=== PATIENT | female | born 1960 | race Caucasian/White ===

== ENCOUNTER 2018-07-08 09:43 | Inpatient (IN) | payer OTHER ==
[~2018-07-08 09:43] MED LIST: ROPIVACAINE 0.2% 80 MG, EPINEPHrine 0.2 MG, KETOROLAC TROMETHAMINE 30 MG, morphINE 10 M... IU ONE; TRANEXAMIC ACID 2,000 MG in NS 100 ML IV ONE
[2018-07-08] MEDS ORDERED: ceFAZolin 2 GM/DEXTROSE 100 ML IV ONE (11:16)
[2018-07-08] MEDS ORDERED: ACETAMINOPHEN 500 MG TAB PO ONE (11:16)
[2018-07-08] MEDS ORDERED: LR 1,000 ML IV SCH (11:16)
[2018-07-08] MEDS ORDERED: LIDOCAINE 1% 2 ML INJ ID PRN (11:18)
[2018-07-08] MEDS ORDERED: ceFAZolin 1 GM/5 ML SYR ONE (12:04)
--- NOTE | 2018-07-08 12:35 | PDHPUP ---
History & Physical Update H&P update statement: This history and physical update is based on an assessment of the patient which was completed after admission or registration (within 24 hours), but prior to the surgery/procedure. H&P update: H&P reviewed & patient examined, no change in patient's condition since H&P completed, changes noted
--- NOTE | 2018-07-08 12:55 | PDANEPAE ---
ANE History of Present Illness Left TKA ANE Past Medical History - Cardiovascular History Hx Hypertension: Yes Hx Arrhythmias: No Hx Chest Pain: No Hx Coronary Artery / Peripheral Vascular Disease: No Hx CHF / Valvular Disease: No Hx Palpitations: No - Pulmonary History Hx COPD: No Hx Asthma/Reactive Airway Disease: No Hx Recent Upper Respiratory Infection: Yes Hx Oxygen in Use at Home: No Hx Sleep Apnea: No Sleep Apnea Screening Result - Last Documented: Negative Pulmonary History Comment: CURRENTLY ON ANTIBIOTIC FOR POSSIBLE URI BEGAN . PNEUMONIA 09/2017. seasonal allergies. - Neurologic History Hx Cerebrovascular Accident: No Hx Seizures: No Hx Dementia: No - Endocrine History Hx Diabetes: No - Renal History Hx Renal Disorders: Yes Renal History Comment: Stones 02/07. - Liver History Hx Hepatic Disorders: No Hepatic History Comment: Fatty liver in past. - Neurological & Psychiatric Hx Hx Neurological and Psychiatric Disorders: No - Cancer History Hx Cancer: No - Congenital Disorder History Hx Congenital Disorders: No - GI History Hx Gastrointestinal Disorders: No - Other Health History Other Health History: OSTEOARTHRITIS - Chronic Pain History Chronic Pain: Yes (LT KNEE) - Surgical History Prior Surgeries: LT TOTAL KNEE 06/2015. AJAY. HYSTERECTOMY. . ANE Review of Systems Review of Systems: - Exercise capacity METS (RN): 4 METS ANE Patient History - Allergies Allergies/Adverse Reactions: Sulfa (Sulfonamide Antibiotics) Allergy (Intermediate, Verified 06/03/15 11:20) Rash fentanyl Allergy (Verified 06/24/18 10:00) Other-Enter Comments oxycodone Allergy (Verified 05/27/15 14:21) PT HAD SOME TONGUE SWELLING WITH OXYCODONE IR IV iodine Allergy (Intermediate, Uncoded 06/03/15 11:20) Hives - Home Medications Home Medications: Fexofenadine HCl [Nury Allergy] 180 mg PO DAILY PRN 06/24/18 [Last Taken 11/13] Fluticasone Nasal [Flonase Nasal [place] (RX)] 1 sprays NASAL DAILY PRN 06/24/18 [ Last Taken 07/07/18] Ibuprofen [Motrin (*)] 200 mg PO DAILY PRN 06/24/18 [Last Taken 07/01/18] Warfarin Sodium [Coumadin 5MG (*)] 5 mg PO DAILY16 06/24/18 [Last Taken 07/08/18 ] - NPO status NPO Since - Liquids (Date): 07/08/18 NPO Since - Liquids (Time): 09:30 NPO Since - Solids (Date): 07/07/18 NPO Since - Solids (Time): 21:30 - Anes Hx Anes Hx: no prior problems (Had GA for TKA and was very happy.) - Smoking Hx Smoking Status: Never smoked - Family Anes Hx Family Hx Anesthesia Complications: none ANE Labs/Vital Signs - Vital Signs Blood Pressure: 149/103 Heart Rate: 73 Respiratory Rate: 14 O2 Sat (%): 93 Height: 163.83 cm Weight: 107.501 kg ANE Physical Exam - Airway Neck exam: FROM Mallampati Score: Class 2 Mouth exam: normal dental/mouth exam - Pulmonary Pulmonary: no respiratory distress - Cardiovascular Cardiovascular: regular rate and rhythym - ASA Status ASA Status: II ANE Anesthesia Plan Anesthesia Plan: general endotracheal anesthesia (Spinal with Adductor block discussed. Pt requests GA and no block. )
[2018-07-08] MEDS ORDERED: MIDAZOLAM 2 MG/2 ML VIAL IVP ONE (13:00)
[2018-07-08] MEDS ORDERED: MIDAZOLAM 2 MG/2 ML VIAL ONE (13:01)
[2018-07-08] MEDS ORDERED: fentaNYL 100 MCG/2 ML INJ ONE ×3 (13:07→15:38)
[2018-07-08] MEDS ORDERED: LIDOCAINE 2% 5 ML SDV ONE (13:08)
[2018-07-08] MEDS ORDERED: PROPOFOL 200 MG/20 ML VIAL ONE (13:08)
[2018-07-08] MEDS ORDERED: ROCURONIUM 50 MG/5 ML VIAL ONE (13:08)
[2018-07-08] MEDS ORDERED: GLYCOPYRROLATE 0.2 MG/1 ML VIAL ONE (13:09)
[2018-07-08] MEDS ORDERED: ONDANSETRON 4 MG/2 ML VIAL ONE (13:26)
[2018-07-08] MEDS ORDERED: DEXAMETHASONE 4 MG/ML VIAL ONE (13:26)
[2018-07-08] MEDS ORDERED: LABETALOL HCL 5 MG/ML 20 ML MDV ONE (13:52)
[2018-07-08] MEDS ORDERED: NALOXONE HCL 0.4 MG/ML INJ IVP PRN ×2 (15:31→16:25)
[2018-07-08] MEDS ORDERED: ONDANSETRON 4 MG/2 ML VIAL IVP PRN (15:31)
[2018-07-08] MEDS ORDERED: PROMETHAZINE HCL 25 MG/ML INJ IVP PRN ×2 (15:31→18:25)
--- NOTE | 2018-07-08 15:55 | POSTOPPROG ---
Post Op Note Date of Operation: 07/08/18 Surgeon: Marina Varela [employer]: ness sutton Anesthesia: GET(General Endotracheal) Pre-op Diagnosis: left knee osteoarthritis Post-op Diagnosis: left knee osteoarthritis Procedure: left total knee arthroplasty Inf/Abcess present in the surg proc area at time of surgery?: No Depth: Deep Incisional (Fascial) EBL: 100-500 Drains: Fabien Delgadillo
--- NOTE | 2018-07-08 15:59 | POSTANESTH ---
Post Anesthetic Evaluation Cardiovascular Status: Similar to Pre-Op Cond Respiratory Status: Similar to Pre-op Cond. Level of Consciousness/Mental Status: Alert and Oriented Pain Control: Adequate, Prn Tx Ordered Nausea/Vomiting Control: Adequate, Prn Tx Ordered Complications Possibly Related to Anesthesia: None Noted
[2018-07-08] MEDS ORDERED: HYDROmorphONE/DILAUDID 1 MG/ML INJ IVP PRN (16:01)
[2018-07-08] MEDS ORDERED: ACETAMINOPHEN 325 MG TAB PO PRN (16:01)
[2018-07-08] MEDS ORDERED: ONDANSETRON DISINTEGRATING 4 MG TAB PO PRN (16:01)
[2018-07-08] MEDS ORDERED: KETOROLAC 15 MG/1 ML SDV IVP ONE (16:01)
[2018-07-08] MEDS ORDERED: HYDROmorphONE/DILAUDID 2 MG/ML INJ ONE ×2 (16:25→16:29)
[2018-07-08] MEDS: HYDROmorphONE/DILAUDID 1 MG/ML INJ IVP PRN ×4 (16:30→17:22)
[2018-07-08] MEDS ORDERED: KETOROLAC 15 MG/1 ML SDV ONE (17:19)
[2018-07-08] MEDS ORDERED: WARFARIN SODIUM 7.5 MG TAB PO ONE (18:00)
[2018-07-08] MEDS ORDERED: WARFARIN SODIUM 5 MG TAB ONE (18:06)
[2018-07-08] MEDS ORDERED: SCOPOLAMINE HYDROBROMIDE 1 MG/3 DAYS PATCH TD SCH (18:30)
[2018-07-08] MEDS: HYDROCODONE/APAP 5/325 TAB PO PRN (20:11)
[2018-07-08] MEDS: ceFAZolin 2 GM/DEXTROSE 100 ML IV SCH (20:11)
[2018-07-09] MEDS: HYDROCODONE/APAP 5/325 TAB PO PRN ×3 (00:08→08:50)
--- NOTE | 2018-07-09 03:08 | GOP ---
DATE OF OPERATION: 07/08/2018 SURGEON: Jeannette Varela MD NURSE PRACTITIONER HOME ASSESSMENTS: Mary Fajardo PA-C. ANESTHESIA: General. ANESTHESIOLOGIST: Isidro Hui MD. Use of a salesperson surgical appliances was required for surgical exposure during the procedure. PREOPERATIVE DIAGNOSIS: Severe osteoarthritis of the left knee. POSTOPERATIVE DIAGNOSIS: Severe osteoarthritis of the left knee. PROCEDURE PERFORMED: Left total knee arthroplasty. FINDINGS: INDICATIONS: This is a 58-year-old female with progressive and quite significant pain and disability secondary to the above diagnosis. She is failing nonoperative treatment and is being admitted for t he above surgical procedure. We have gone over risks, benefits, and limitations of the procedure pre operatively. DESCRIPTION OF PROCEDURE: After an adequate general anesthetic was obtained and IV antibiotics were administered, the patient's left lower extremity was prepped and draped in the usual sterile fashion. The limb was exsanguinate d with the Esmarch and the tourniquet elevated to 300 mmHg pressure. A longitudinal incision was luz ramsey over the knee and a medial arthrotomy was performed. Hemostasis was obtained using electrocauter y. The tourniquet was dysfunctional and therefore, the tourniquet was deflated and the limb re-exsan guinated, and tourniquet elevated to 325 mmHg pressure. At this point hemostasis was adequate. The patella was dislocated laterally. The joint was inspected. There was severe [id number] osteoa rthritis involving the patellofemoral and medial compartments. The medial and lateral meniscal remna nts were sharply excised, as were the osteophytes and the ACL. The intramedullary canal of the distal femur was entered. The intramedullary distal femoral cutting jig was applied. 9 mm of distal femur was resected in a 5 degree valgus alignment. The intramedullary tibial cutting jig was applied. Approximately 9 mm of proximal tibia was resected laterally and 7 mm medially perpendicular to the long axis of the tibia with 3 degrees of posterior slope, preserving the posterior cruciate ligament. The anterior/posterior jig was applied. We sized this to a 5. The jig was applied in approximately 3-4 degrees of external rotation commensurate wit h the transepicondylar axis. The anterior, posterior, and chamfer cuts were now preformed in the routine fashion. The patella was measured and approximately 9 mm resected. This was sized to a 35 component and the p atellar lug holes were drilled. A trial reduction was now performed using a size 5 narrow femur, 4 tibial tray with a 9 mm insert, an d 35 mm patellar button. This resulted in full extension and flexion. The knee was well balanced an d stable through a full range of motion. Patellar tracking was normal. Tibial tray rotation was mar ked. The femoral lug holes were punched and the proximal tibia was prepared with the keel punch in t he routine fashion. The first batch of cement was mixed. The proximal tibia was prepared with pulsatile lavage. The #4 tibial tray was now cemented in place and held firm while the cement hardened. Excess cement was rem trang. A bone plug was placed in the distal femoral hole. A second batch of cement was mixed. The distal f emoral and patellar surfaces were prepared with pulsatile lavage. The size 5 narrow femoral component was impacted into place and the knee extended with a 9 mm insert. The 35 mm patellar button was cemented into place and excess cement was removed. The patellar comp onent was held firm with a patellar clamp while the cement cured. Again, a trial reduction was now performed using a 9 mm insert. This resulted in a full range of motion with excellent varus and valgus stability through a full range of motion. Patellar tracking was normal. The overall alignment was confirmed to be accep table with the long alignment domenica. After further copious irrigation with pulsatile lavage, the final 9 mm insert was impacted into place and again, excellent range of motion and stability were confirmed. The tourniquet was deflated. Hemostasis was obtained using electrocautery. A large drain was left i n place intra-articularly. Medial arthrotomy was now closed using interrupted #2 Fiberwire sutures as well as #1 Vicryl sutures. Subcutaneous closure was performed using interrupted 2-0 Vicryl sutures, and the skin closed using stainless steel sudha. Cocktail comprised of Naropin, morphine, and Toradol was injected. Sterile dressing was applied, followed by an Choco wrap. There were no complications. The patient tolerated the procedure well and returned to the recovery r o in stable condition. IMPLANTS UTILIZED: 1. Mota and Nephew size 5, left cruciate-retaining Legion Narrow Oxinium femoral component. 2. Mota and Nephew size 4, Basia II left non-porous tibial baseplate. 3. Mota and Nephew size 4, 9 mm Legion CRXL PE, high-flexion articular insert. 4. Mota and Nephew 35 mm Basia II resurfacing patellar component. /[id number]/MODL
[2018-07-09] MEDS: ceFAZolin 2 GM/DEXTROSE 100 ML IV SCH (04:30)
[2018-07-09 05:47] LABS: INR 1.03 (0.83-1.16); PROTIME(PATIENT) 13.7 SEC (12.0-15.0)
[2018-07-09] MEDS ORDERED: WARFARIN SODIUM 7.5 MG TAB PO ONE (10:15)
--- NOTE | 2018-07-09 11:21 | SOAPPROG ---
SOAP Progress Note Assessment/Plan: Assessment: Left total knee arthroplasty, POD#[address] Varela. -Continue Warfarin with pharmacy to dose-checking INR daily as ordered. -Continue Polar Care ice machine -Continue elevation prn -Finish antibiotics today as ordered. -Weight bearing as tolerated LLE. -Continue to work with PT/OT. -Continue pain meds as ordered, avoiding Oxycodone due to her previous allergic reaction. -Pt. is planning to be able to go home tomorrow if she does well with PT/OT today and if she can get her pain under control with oral meds today. -Will check incision and change dressing tomorrow unless pt. needs a dressing change earlier. Subjective: Pt. had a difficult time getting up and putting weight on her left leg this AM but is encouraged by her ability to flex the knee. She was upset at the prospect of going home today which had been mentioned to her earlier this AM. She does not feel that her pain is adequately managed yet and has not yet had a chance to work with PT/OT to determine how she will do with stairs, which she will have to manage at home. I think this is reasonable as well. Pt. denies VELIZ, dizziness, further nausea, vomiting, no numbness or tingling of the toes or legs, no weakness of the lower legs. Objective: Pt. is sitting up in a chair, resting comfortably. in NAD. Distally her calves are soft, supple, NTTP, negative Adrián's test bilaterally. Sensation in tact and equal to BLE's with light touch, strength full with resisted dorsi and plantar flexion in BLE's. Skin is warm, dry and pink. 07/09/18 11:12 Objective: Vital Signs Temp Pulse Resp BP Pulse Ox 36.9 C 70 17 105/69 96 07/09/18 07:21 07/09/18 07:21 07/09/18 07:21 07/09/18 07:21 07/09/18 07:21 07/08/18 07/09/18 07/10/18 05:59 05:59 05:59 Intake Total 1730 Output Total 555 Balance 1175 PT 13.7 SEC (12.0-15.0) 07/09/18 04:52 INR 1.03 (0.83-1.16) 07/09/18 04:52 ICD10 Worksheet Patient Problems: Problems Problem Status Onset Localized osteoarthritis of right knee Acute
[2018-07-09] MEDS ORDERED: BISACODYL 10 MG SUPP PR PRN (11:26)
[2018-07-09] MEDS ORDERED: MAGNESIUM HYDROXIDE 30 ML UDCUP PO PRN (11:26)
[2018-07-09] MEDS ORDERED: POLYETHYLENE GLYCOL 3350 17 GM PKT PO PRN (11:26)
[2018-07-09] MEDS ORDERED: LACTULOSE 20 GM/30 ML UDCUP PO PRN (11:26)
[2018-07-09] MEDS ORDERED: HYDROmorphONE/DILAUDID 2 MG TAB PO PRN (11:28)
[2018-07-09] MEDS: KETOROLAC 30 MG/1 ML SDV IVP PRN ×2 (11:42→17:39)
[2018-07-09] MEDS: SENNOSIDES/DOCUSATE SODIUM TAB PO SCH ×2 (11:47→20:21)
[2018-07-09] MEDS: HYDROCODONE/APAP 10/325 TAB PO PRN ×2 (14:17→22:52)
--- NOTE | 2018-07-09 14:52 | ASMTCMCOM ---
CM Note CM Note Notes: Pt had planned TKA, resides with spouse. OT rec home, PT rec home/outpatient and also state there is a chance pt may need HHC. CM to follow. Date Signed: 07/09/2018 02:51 PM Electronically Signed By:LORENA Guzman
--- NOTE | 2018-07-09 16:20 | PDMN ---
Medical Necessity Medical necessity: Change to inpt as of 07/09/18 @ 1610. Pt meets inpt criteria per MD order and [facility] [place] S-700, Knee Arthroplasty, Total. 58 y/o POD#1 L TKA, upgraded to inpt for cont pain control, difficulty w/PT today, need for further PT eval. Pt w/add'l risk factors of hx pneumonia this past year and BMI of 40.
[2018-07-09] MEDS ORDERED: SENNOSIDES/DOCUSATE SODIUM TAB PO SCH (21:00)
[2018-07-10] MEDS: HYDROCODONE/APAP 10/325 TAB PO PRN ×2 (04:09→10:37)
[2018-07-10 05:25] LABS: INR 1.15 (0.83-1.16); PROTIME(PATIENT) 14.9 SEC (12.0-15.0)
[2018-07-10] MEDS: KETOROLAC 30 MG/1 ML SDV IVP PRN (05:40)
[2018-07-10] MEDS: SENNOSIDES/DOCUSATE SODIUM TAB PO SCH (09:12)
--- NOTE | 2018-07-10 11:10 | SOAPPROG ---
SOAP Progress Note Assessment/Plan: Assessment: Left total knee arthroplasty, POD#[address] Varela. -Continue Warfarin with pharmacy to dose-checking INR daily as ordered. -Continue Polar Care ice machine -Continue elevation prn -Weight bearing as tolerated LLE. -Continue to work with PT/OT. -Continue pain meds as ordered, avoiding Oxycodone due to her previous allergic reaction. -Pt. is planning to be able to go home today, she did well with PT and pain is much better controlled now than it was yesterday. -Will check incision and change dressing tomorrow unless pt. needs a dressing change earlier. Subjective: Pt. is feeling much better today from a pain perspective. She is not having any VELIZ, SOB, CP, Fever, calf pain, N/T of the extremities, weakness of the ankles/toes. ROM of the knee is painful, but she is getting 90 degrees of flexion. Objective: Pt. is resting in bed, comfortably, in NAD. Distally her calves are soft, supple, NTTP, negative Adrián's test bilaterally. Sensation in tact and equal to BLE's with light touch, strength full with resisted dorsi and plantar flexion in BLE's. Skin is warm, dry and pink. Incision is clean, with no surrounding redness, warmth, tenderness or swelling. Minimal bloody discharge. 07/09/18 11:12 07/10/18 10:54 Objective: Vital Signs Temp Pulse Resp BP Pulse Ox 36.9 C 75 17 119/64 93 07/10/18 07:22 07/10/18 07:22 07/10/18 07:22 07/10/18 07:22 07/10/18 07:22 07/09/18 07/10/18 07/11/18 05:59 05:59 05:59 Intake Total 1730 1550 Output Total 555 600 Balance 1175 950 PT 14.9 SEC (12.0-15.0) 07/10/18 04:34 INR 1.15 (0.83-1.16) 07/10/18 04:34 ICD10 Worksheet Patient Problems: Problems Problem Status Onset Localized osteoarthritis of right knee Acute
--- NOTE | 2018-07-10 11:28 | ASMTLACE ---
PRETTYE Length of stay for Answers: 1 day current admission Acuity / Level of Answers: Yes Care: Did the patient have an inpatient admission? Comorbidities - select Answers: Opioid dependence all that apply / Chronic pain Other Notes: HTN # of Emergency department Answers: 0 visits in the last 6 months Score: 9 Date Signed: 07/10/2018 11:28 AM Electronically Signed By:Amy Loving RN
--- NOTE | 2018-07-10 11:30 | ASMTDCNOTE ---
Case Management Discharge Discharge Order Complete? Answers: Yes Patient to Obtain Answers: Independently Medications Transportation Arranged Answers: Family/Friends Family Notified Answers: Yes Discharge Comments Notes: Patient discharged home with . PT/OT have cleared. Patient will f/u with Dr Varela as recommended. Date Signed: 07/10/2018 11:29 AM Electronically Signed By:Amy Loving RN
[2018-07-10 11:52] VITALS: BP 119/59
[2018-07-11] MEDS ORDERED: PATCH REMOVAL 1 EA PATCH TD ONE (18:30)
--- NOTE | 2018-07-12 16:14 | GDS ---
PREOPERATIVE DIAGNOSIS: Left knee osteoarthritis, ICD 10 code M17.12. POSTOPERATIVE DIAGNOSIS: Left knee osteoarthritis. PROCEDURE PERFORMED: Left total knee arthroplasty. HOSPITAL COURSE: The patient was admitted, placed on IV Ancef for antibiotic measure and taken to [facility] operating room on 07/08/2018, whereupon, she underwent a left total knee arthroplasty performed by Dr. Varela. There were no intraoperative complications. Postoperative treatment for VTE prophylaxis included mechanical prophylaxis with RENETTA hose and sequential compression devices as well as warfarin for VTE chemoprophylaxis. DISCHARGE INSTRUCTIONS: The patient was advised to keep her incision dry and change her dressing as needed if it becomes wet or loosens. If she develops any redness, warmth, swelling or drainage from the incisions, to notify our office immediately. In addition, notify us for fevers, sweats, chills, or other concerning symptoms. Medications upon discharge. The patient was given a prescription for Dilaudid for more severe pain and Robinson 5/325 mg for moderate pain. She was advised not to take thes e 2 together, however, to use the Dilaudid for more severe pain and then when able, to bump down to t he Robinson. She should not take additional Tylenol with Robinson as she does understand that the Robinson al so has Tylenol in it. In addition, the patient was prescribed warfarin which she will continue to ta ke 5 mg daily and have her INR draws on and Saturday so that we can monitor this throughout he r course. She will be notified if she needs to change her dosing on her warfarin. The patient is also to resume her preoperative medications at their prescribed dosage other than anti -inflammatories. The patient is scheduled to follow up with Dr. Varela 10-14 days postoperatively or sooner with any a dditional concerns or complaints. She is encouraged to contact the office to schedule the appointmen t or with any other questions. /[id number]/MODL
== END 2018-07-10 12:42 | disposition home or self-care (01) | DRG 470 ==
LOC: F3N 11:01 → INTOOBSV 11:01 → F3N 17:50 → OBSVTOIN 07-09 16:10
PROVIDERS: ADMIT Orthopaedic Surgery Sports Medicine; ATTEND Orthopaedic Surgery Sports Medicine
PROC: 0SRD0J9 Replacement of Left Knee Joint with Synthetic Substitute, Cemented, Open Approach (ICD-10-PCS; principal; 2018-07-08 13:00)
DX: M17.12 Unilateral primary osteoarthritis, left knee (principal); I10 Essential (primary) hypertension
CPT/HCPCS: 97110-GP; 97116-GP; 97161-GP; 97165-GO; 97530-GP; 97535-GO; C1713; G0378; J0171; J0690; J1100; J1170; J1885; J2250; J2270; J2405; J2550; J2704; J2795; J3010